=== PATIENT | female | born 1985 | race African-American/Black ===

== ENCOUNTER 2024-03-09 18:56 | Emergency (ER) | payer OTHER ==
[~2024-03-09] VITALS: Ht 172.7 cm; Wt 85.3 kg
[2024-03-09] MEDS: IBUPROFEN 600MG TAB PO ONE (23:49)
[2024-03-09] MEDS: predniSONE 20 MG TAB PO ONE (23:49)
[2024-03-10] MEDS ORDERED: PRED20TA PO (00:46)
[2024-03-10] MEDS ORDERED: METH-1164 PO (00:46)
[2024-03-10] MEDS ORDERED: IBUP-1022 PO (00:46)
[2024-03-10] MEDS: methocarbamoL 500 MG TAB PO ONE (00:49)
[2024-03-10 00:52] VITALS: BP 124/59; TEMP 98; O2SAT 100
== END 2024-03-10 00:55 | disposition home or self-care (01) ==
LOC: M ED 18:56
DX: M54.50 Low back pain, unspecified (principal); M54.32 Sciatica, left side; Z79.1 Long term (current) use of non-steroidal anti-inflammatories (NSAID); Z79.52 Long term (current) use of systemic steroids; Z79.899 Other long term (current) drug therapy
CPT/HCPCS: 72110; 93971; 99283; J7512

== ENCOUNTER → 2024-11-04 | Outpatient (CLI) | payer OTHER ==
[~2024-11-04] MED LIST: IBUP-1022 PO; METH-1164 PO; PRED20TA PO
== END ==
LOC: M WHC 09:58
PROVIDERS: ATTEND Nurse Practitioner Primary Care
DX: R92.2 Inconclusive mammogram (principal)

== ENCOUNTER → 2024-11-17 | Outpatient (CLI) | payer OTHER | LOC: M WHC 10:16 | PROVIDERS: ATTEND Nurse Practitioner Primary Care | DX: Z12.31 Encounter for screening mammogram for malignant neoplasm of breast (principal) ==